=== PATIENT | male | born 1965 | race Caucasian/White ===

== ENCOUNTER → 2023-09-30 06:32 | Day surgery (SDC) | payer OTHER, SELFPAY | LOC: GI 06:32 | PROVIDERS: ATTENDING PHYSICIAN Internal Medicine | DX: R13.10 Dysphagia, unspecified (principal); K22.89 Other specified disease of esophagus; K22.81 Esophageal polyp; C15.4 Malignant neoplasm of middle third of esophagus; K29.50 Unspecified chronic gastritis without bleeding | CPT/HCPCS: 43239; 88305; 88341; 88342; 88360 ==

== ENCOUNTER 2023-10-12 06:37 | Day surgery (SDC) | payer OTHER, SELFPAY ==
[2023-10-12] VITALS (7 sets, daily range): BP systolic 124–136; BP diastolic 76–86; BMI 29.6
--- NOTE | 2023-10-12 12:59 | SUR.PHASEI ---
comfortable in pacu, quiet. no questions, awaiting Dr Mckeon visit. vss. discharge to [facility]
== END 2023-10-12 14:00 | disposition home or self-care (01) ==
LOC: SDS 06:37
PROVIDERS: ATTENDING PHYSICIAN Internal Medicine Gastroenterology
DX: C15.9 Malignant neoplasm of esophagus, unspecified (principal); K22.81 Esophageal polyp; K22.89 Other specified disease of esophagus; R59.0 Localized enlarged lymph nodes
CPT/HCPCS: 43242; 43239; 88305; 88341; 88360